=== PATIENT | female | born 1970 | race American Indian/Alaskan Native ===

== ENCOUNTER 2019-11-23 17:42 | Emergency (ER) | payer SELFPAY ==
--- NOTE | 2019-11-23 19:24 | Event Note ---
ED Screening Note Date of service: 11/23/19 Time: 19:38 ED Screening Note: 49 y/o female comes in for tingling and "sticky pin" discomfort to the right side in the last 2 days. Denies any trauma or injuries. Patient has been out of her blood pressure for 7 months. Patient admits to not wanting to alive at times. Denies any SI. Patient is tearful in triage. BS 200 This initial assessment/diagnostic orders/clinical plan/treatment(s) is/are subject to change based on patients health status, clinical progression and re- assessment by fellow clinical providers in the ED. Further treatment and workup at subsequent clinical providers discretion. Patient/guardian urged not to elope from the ED as their condition may be serious if not clinically assessed and managed. Initial orders include:
--- NOTE | 2019-11-23 19:31 | Emergency Department Report ---
Chief Complaint: Neuro Symptoms/Deficit Stated Complaint: HIP & LEG HAS TINGLING, STICK PIN FEEL Time Seen by Provider: 11/23/19 19:23 - HPI History of Present Illness: 49 y/o female comes in for tingling and "sticky pin" discomfort to the right side in the last 2 days. Denies any trauma or injuries. - Exam Vital Signs: Vital Signs 11/23/19 17:54 Temperature 98.8 F Pulse Rate 111 H Respiratory 16 Rate Blood Pressure 193/121 O2 Sat by Pulse 94 Oximetry MSE screening note: Focused history and physical exam performed. Due to findings the following was ordered: ED Disposition for MSE Condition: Stable
[2019-11-23 19:32] VITALS: BP 196/110
[2019-11-23 19:52] LABS: Basophils # (Auto) 0.1 K/mm3 (0.0-0.1); Basophils % (Auto) 1.2 % (0.0-1.8); Eosinophils # (Auto) 0.1 K/mm3 (0.0-0.4); Eosinophils % (Auto) 2.1 % (0.0-4.3); Hematocrit 43.7 % (30.3-42.9); Hemoglobin 14.9 gm/dl (10.1-14.3); Lymphocytes # (Auto) 1.8 K/mm3 (1.2-5.4); Lymphocytes % (Auto) 31.9 % (13.4-35.0); Mean Corpuscular HGB Conc 34 % (30-34); Mean Corpuscular Volume 86 fl (79-97); Monocytes # (Auto) 0.4 K/mm3 (0.0-0.8); Monocytes % (Auto) 6.6 % (0.0-7.3); Platelet Count 220 K/mm3 (140-440); Red Blood Count 5.06 M/mm3 (3.65-5.03); Red Cell Distribution Width 13.9 % (13.2-15.2)
[2019-11-23 20:15] LABS: Alanine Aminotransferase 19 units/L (7-56); Albumin 3.9 g/dL (3.9-5); BUN/Creatinine Ratio 21; Blood Urea Nitrogen 15 mg/dL (7-17); Calcium 9.7 mg/dL (8.4-10.2); Hemolysis Index 7
[2019-11-23] MEDS ORDERED: IBUPROFEN 600 MG TAB PO ONE (20:44)
[2019-11-23] MEDS ORDERED: GABAPENTIN 300 MG CAP PO ONE (20:44)
--- NOTE | 2019-11-23 21:30 | Emergency Department Report ---
ED General Adult HPI - General Chief complaint: Neuro Symptoms/Deficit Stated complaint: HIP & LEG HAS TINGLING, STICK PIN FEEL Time Seen by Provider: 11/23/19 19:23 Source: patient Mode of arrival: Ambulatory Limitations: No Limitations - History of Present Illness Initial comments: Patient is a 49-year-old -[place] female with a history of hypertension, mal-teaeelt-ozvcaluat diabetes, anxiety and depression who presents to the ED with acute onset persistent right lateral neck pain with tingling and numbness sensation on the right hand and low back pain that radiates to the right leg with tingling and numbness sensation. Patient states that the symptoms have been persistent and that she is unable to sleep. Patient denies dizziness, na usea, vomiting, chest pain, shortness of breath, fever, chills, cough, fall, traumatic injury, heavy lifting, headache, abdominal pain or change in vision or syncope. Patient also states that she would like her medications refilled since she ran out of hypertension medications. MD Complaint: Right hand and leg tingling sensations; neck pain, low back pain -: Sudden, days(s) (2) Location: neck, back (lower), upper extremity (right hand), lower extremity (right leg) Radiation: non-radiation Severity scale (0 -10): 9 Quality: aching, sharp Consistency: constant Improves with: none Worsens with: none Associated Symptoms: denies other symptoms. denies: confusion, chest pain, cough, diaphoresis, fever/chills, headaches, loss of appetite, malaise, nausea/vomiting, rash, seizure, shortness of breath, syncope, weakness Treatments Prior to Arrival: none - Related Data Previous Rx's Medication Instructions Recorded Last Taken Type Gabapentin 300 mg PO Q12H PRN #30 cap 11/23/19 Unknown Rx Ibuprofen [Motrin] 800 mg PO Q8HR PRN #24 tablet 11/23/19 Unknown Rx Sertraline [Zoloft] 50 mg PO QDAY #60 tablet 11/23/19 Unknown Rx amLODIPine 10 mg PO DAILY #30 tab 11/23/19 Unknown Rx lisinopriL [Zestril TAB] 20 mg PO QDAY #30 tablet 11/23/19 Unknown Rx metFORMIN [Glucophage] 500 mg PO Q12H #60 tablet 11/23/19 Unknown Rx predniSONE [Deltasone] 40 mg PO QDAY #10 tab 11/23/19 Unknown Rx Allergies Allergy/AdvReac Type Severity Reaction Status Date / Time codeine Allergy Unknown Verified 11/23/19 17:47 ED Review of Systems ROS: Stated complaint: HIP & LEG HAS TINGLING, STICK PIN FEEL Other details as noted in HPI Constitutional: denies: chills, fever Eyes: denies: eye pain, eye discharge, vision change ENT: denies: ear pain, throat pain Respiratory: denies: cough, shortness of breath, wheezing Cardiovascular: denies: chest pain, palpitations Endocrine: no symptoms reported Gastrointestinal: denies: abdominal pain, nausea, vomiting, diarrhea, constipation, hematemesis Genitourinary: denies: urgency, dysuria, discharge Musculoskeletal: back pain (Low back pain that radiates to the right leg), arthralgia (Right lateral neck pain that radiates to the right arm). denies: joint swelling Skin: denies: rash, lesions Neurological: headache. denies: weakness, paresthesias Psychiatric: denies: anxiety, depression Hematological/Lymphatic: denies: easy bleeding, easy bruising ED Past Medical Hx - Past Medical History Hx Hypertension: Yes Hx Diabetes: Yes Hx Asthma: Yes - Surgical History Additional Surgical History: D&C, Hysterectomy, breast reduction - Social History Smoking Status: Never Smoker Substance Use Type: Marijuana - Medications Home Medications: Home Medications Medication Instructions Recorded Confirmed Last Taken Type Gabapentin 300 mg PO Q12H PRN #30 cap 11/23/19 Unknown Rx Ibuprofen [Motrin] 800 mg PO Q8HR PRN #24 tablet 11/23/19 Unknown Rx Sertraline [Zoloft] 50 mg PO QDAY #60 tablet 11/23/19 Unknown Rx amLODIPine 10 mg PO DAILY #30 tab 11/23/19 Unknown Rx lisinopriL [Zestril TAB] 20 mg PO QDAY #30 tablet 11/23/19 Unknown Rx metFORMIN [Glucophage] 500 mg PO Q12H #60 tablet 11/23/19 Unknown Rx predniSONE [Deltasone] 40 mg PO QDAY #10 tab 11/23/19 Unknown Rx ED Physical Exam - General Limitations: No Limitations General appearance: alert, in no apparent distress - Head Head exam: Present: atraumatic, normocephalic, normal inspection - Eye Eye exam: Present: normal appearance, PERRL, EOMI Pupils: Present: normal accommodation - ENT ENT exam: Present: normal exam, normal orophraynx, mucous membranes moist, TM's normal bilaterally, normal external ear exam - Neck Neck exam: Present: normal inspection, tenderness (Right lateral sternocleidomastoid tenderness), full ROM - Respiratory Respiratory exam: Present: normal lung sounds bilaterally. Absent: respiratory distress, wheezes, rhonchi, stridor, chest wall tenderness, accessory muscle use, decreased breath sounds - Cardiovascular Cardiovascular Exam: Present: normal rhythm, tachycardia, normal heart sounds. Absent: systolic murmur, diastolic murmur, rubs, gallop - GI/Abdominal GI/Abdominal exam: Present: soft, normal bowel sounds. Absent: tenderness, guarding, hyperactive bowel sounds, hypoactive bowel sounds, organomegaly - Extremities Exam Extremities exam: Present: normal inspection, full ROM, normal capillary refill. Absent: tenderness - Back Exam Back exam: Present: normal inspection, full ROM, tenderness (Palpable lumbosacral paraspinal musculoskeletal tenderness), muscle spasm, paraspinal tenderness - Neurological Exam Neurological exam: Present: alert, oriented X3, CN II-XII intact, normal gait, reflexes normal - Psychiatric Psychiatric exam: Present: normal affect, normal mood - Skin Skin exam: Present: warm, dry, intact, normal color. Absent: rash ED Course Vital Signs 11/23/19 11/23/19 17:54 19:31 Temperature 98.8 F Pulse Rate 111 H 99 H Respiratory 16 17 Rate Blood Pressure 193/121 Blood Pressure 196/110 [Right] O2 Sat by Pulse 94 Oximetry ED Medical Decision Making - Lab Data Result diagrams: 11/23/19 19:41 11/23/19 19:41 - Medical Decision Making This is a 49-year-old female who presented to the ED with right lateral neck pain that radiates to the right arm, low back pain that radiates to the right leg and mild headache. In the ED, patient is alert and oriented x3 and is not in any distress but anxious and tachycardic in triage. Lab test results were reviewed and are all nonactionable. Patient was treated for pain in the ED and discharged home on pain medications as well as a refill of her hypertension medication. Patient was advised to follow-up with his [facility] clinic in 5 to 7 days for reevaluation and to establish care. Patient was however advised return to the ED immediately if symptoms get worse. - Differential Diagnosis cervical radiculopathy; Lumbar radiculopathy; Muscle strain; muscle spasm Critical care attestation.: If time is entered above; I have spent that time in minutes in the direct care of this critically ill patient, excluding procedure time. ED Disposition Clinical Impression: Cervical radiculopathy, Lumbar radiculopathy, Uncontrolled stage 2 hypertension Disposition: TO HOME OR SELFCARE Is pt being admited?: No Does the pt Need Aspirin: No Condition: Stable Instructions: Hypertension (ED), Cervical Radiculopathy (ED), Lumbar Radiculopathy (ED) Additional Instructions: Take medication with food, drink plenty of fluids and follow-up with your primary care physician in 5 to 7 days for reevaluation. Return to the ED immediately if symptoms get worse. Prescriptions: amLODIPine 10 mg PO DAILY #30 tab predniSONE [Deltasone] 40 mg PO QDAY #10 tab Gabapentin 300 mg PO Q12H PRN #30 cap PRN Reason: Pain , Severe (7-10) metFORMIN [Glucophage] 500 mg PO Q12H #60 tablet Ibuprofen [Motrin] 800 mg PO Q8HR PRN #24 tablet PRN Reason: Pain , Severe (7-10) lisinopriL [Zestril TAB] 20 mg PO QDAY #30 tablet Sertraline [Zoloft] 50 mg PO QDAY #60 tablet Referrals: [facility] [Outside] - 7-10 days Time of Disposition: 21:33 Print Language: TURKMEN
== END 2019-11-23 22:04 | disposition home or self-care (01) ==
LOC: ED 17:42
DX: M54.12 Radiculopathy, cervical region (principal); M54.16 Radiculopathy, lumbar region; I10 Essential (primary) hypertension; E11.9 Type 2 diabetes mellitus without complications; J45.909 Unspecified asthma, uncomplicated; F12.10 Cannabis abuse, uncomplicated; Z79.899 Other long term (current) drug therapy; Z88.5 Allergy status to narcotic agent
CPT/HCPCS: 36415; 80053; 82962; 85025

== ENCOUNTER 2019-12-11 18:14 | Emergency (ER) | payer SELFPAY ==
--- NOTE | 2019-12-11 18:44 | Event Note ---
ED Screening Note Date of service: 12/11/19 Time: 18:40 ED Screening Note: Pt complains of left foot pain and numbness after fire extinguisher fell on her foot at work today This initial assessment/diagnostic orders/clinical plan/treatment(s) is/are subject to change based on patients health status, clinical progression and re- assessment by fellow clinical providers in the ED. Further treatment and workup at subsequent clinical providers discretion. Patient/guardian urged not to elope from the ED as their condition may be serious if not clinically assessed and managed. Initial orders include: XR
--- NOTE | 2019-12-11 19:21 | XRay Report ---
Left foot 3 views INDICATION: Left foot pain and swelling IMPRESSION: No fracture or subluxation of the left foot is identified. Moderate to severe degenerativ e changes identified involving the midfoot and distal forefoot. Signer Name: Sae Gray MD Signed: 12/11/2019 7:17 PM Workstation Name: [id number]
[2019-12-11] MEDS ORDERED: traMADol 50 MG TAB PO ONE (20:38)
--- NOTE | 2019-12-11 20:42 | Emergency Department Report ---
ED Lower Extremity HPI - General Chief Complaint: Extremity Injury, Lower Stated Complaint: LT FOOT INJURY Time Seen by Provider: 12/11/19 18:39 Source: patient Mode of arrival: Ambulatory Limitations: No Limitations - History of Present Illness Initial Comments: Patient is a 49-year-old female presents the emergency room with complaints of a left foot injury that occurred earlier today. She states that when she was at work a fire extinguisher fell onto her foot. She states initially she had tingling in the foot but when she removed her shoe she began to feel a throbbing pain. She denies any numbness or weakness currently. She states that she has been ambulatory but it is uncomfortable. She has a past medical history of DM, HTN, asthma. She has an allergy to codeine. She states that she had a hysterectomy. She states that she takes amlodipine and lisinopril for her blood pressure and reports that she took them today. - Related Data Previous Rx's Medication Instructions Recorded Last Taken Type Gabapentin 300 mg PO Q12H PRN #30 cap 11/23/19 Unknown Rx Ibuprofen [Motrin] 800 mg PO Q8HR PRN #24 tablet 11/23/19 Unknown Rx Sertraline [Zoloft] 50 mg PO QDAY #60 tablet 11/23/19 Unknown Rx lisinopriL [Zestril TAB] 20 mg PO QDAY #30 tablet 11/23/19 Unknown Rx metFORMIN [Glucophage] 500 mg PO Q12H #60 tablet 11/23/19 Unknown Rx predniSONE [Deltasone] 40 mg PO QDAY #10 tab 11/23/19 Unknown Rx Lisinopril/Hydrochlorothiazide 1 tab PO QDAY #30 tab 12/11/19 Unknown Rx [Zestoretic 20-25 mg] Naproxen [EC-Naproxen] 375 mg PO BID PRN #14 tablet. 12/11/19 Unknown Rx amLODIPine 10 mg PO DAILY #30 tab 12/11/19 Unknown Rx Allergies Allergy/AdvReac Type Severity Reaction Status Date / Time codeine Allergy Unknown Verified 11/23/19 17:47 ED Review of Systems ROS: Stated complaint: LT FOOT INJURY Other details as noted in HPI Comment: All other systems reviewed and negative ED Past Medical Hx - Past Medical History Previous Medical History?: Yes Hx Hypertension: Yes Hx Diabetes: Yes Hx Asthma: Yes - Surgical History Past Surgical History?: Yes Additional Surgical History: D&C, Hysterectomy, breast reduction - Social History Smoking Status: Former Smoker Substance Use Type: None - Medications Home Medications: Home Medications Medication Instructions Recorded Confirmed Last Taken Type Gabapentin 300 mg PO Q12H PRN #30 cap 11/23/19 Unknown Rx Ibuprofen [Motrin] 800 mg PO Q8HR PRN #24 tablet 11/23/19 Unknown Rx Sertraline [Zoloft] 50 mg PO QDAY #60 tablet 11/23/19 Unknown Rx lisinopriL [Zestril TAB] 20 mg PO QDAY #30 tablet 11/23/19 Unknown Rx metFORMIN [Glucophage] 500 mg PO Q12H #60 tablet 11/23/19 Unknown Rx predniSONE [Deltasone] 40 mg PO QDAY #10 tab 11/23/19 Unknown Rx Lisinopril/Hydrochlorothiazide 1 tab PO QDAY #30 tab 12/11/19 Unknown Rx [Zestoretic 20-25 mg] Naproxen [EC-Naproxen] 375 mg PO BID PRN #14 tablet. 12/11/19 Unknown Rx amLODIPine 10 mg PO DAILY #30 tab 12/11/19 Unknown Rx ED Physical Exam - General Limitations: No Limitations General appearance: alert, in no apparent distress - Head Head exam: Present: atraumatic, normocephalic - Eye Eye exam: Present: normal appearance - ENT ENT exam: Present: mucous membranes moist - Extremities Exam Extremities exam: Present: other (ttp to the left 2nd and 3rd toes, there is ecchymosis present to the toes, no ttp of the left foot or ankle, FROM of the left foot and ankle, she has decreased ROM of the 2nd and 3rd toe secondary to pain, no obvious deformity, neurovascularly intact) - Neurological Exam Neurological exam: Present: alert, oriented X3 - Psychiatric Psychiatric exam: Present: normal affect, normal mood - Skin Skin exam: Present: warm, dry, intact ED Course Vital Signs 12/11/19 12/11/19 12/11/19 18:25 18:40 21:22 Temperature 98.8 F 98.8 F 98.2 F Pulse Rate 98 H 91 H 88 Respiratory 18 16 Rate Blood Pressure 217/121 217/121 203/111 O2 Sat by Pulse 98 99 98 Oximetry 12/11/19 12/11/19 23:04 23:46 Temperature 98.2 F Pulse Rate 107 H 107 H Respiratory 16 16 Rate Blood Pressure 200/100 O2 Sat by Pulse 98 98 Oximetry ED Lower Extremity MDM - Radiology Data Radiology results: report reviewed Left foot 3 views INDICATION: Left foot pain and swelling IMPRESSION: No fracture or subluxation of the left foot is identified. Moderate to severe degenerative changes identified involving the midfoot and distal forefoot. Signer Name: Sae Gray MD Signed: 12/11/2019 7:17 PM Workstation Name: [id number] Transcribed By: ARINA Dictated By: Sae Gray MD Electronically Authenticated By: Sae Gray MD Signed Date/Time: 12/11/191916 DD/ 15 TD/TT: - Medical Decision Making Patient is a 49-year-old female presents the emergency room with complaints of a left foot injury that occurred earlier today. She states that when she was at work a fire extinguisher fell onto her foot. She states initially she had tingling in the foot but when she removed her shoe she began to feel a throbbing pain. She denies any numbness or weakness currently. She states that she has been ambulatory but it is uncomfortable. She has a past medical history of DM, HTN, asthma. She has an allergy to codeine. She states that she had a hysterectomy. She states that she takes amlodipine and lisinopril for her blood pressure and reports that she took them today. on exam: ttp to the left 2nd and 3rd toes, there is ecchymosis present to the toes, no ttp of the left foot or ankle, FROM of the left foot and ankle, she has decreased ROM of the 2nd and 3rd toe secondary to pain, no obvious deformity, neurovascularly intact. XR left foot: No fracture or subluxation of the left foot is identified. Moderate to severe degenerative changes identified involving the midfoot and distal forefoot. Patient did not drive to the emergency department, her pain was treated. Patient's vitals significant for elevated blood pressure of 217/121 patient given hydralazine p.o. and her blood pressure is slightly improved. Patient is not having any symptoms related to her blood pressure, she is not having any chest pain, shortness of breath, numbness, headache, vision changes. The up-to-date medical literature does not recommend emergently lowering asymptomatic elevated blood pressure. It appears patient's blood pressure has been elevated multiple times in the past. Patient reports that she takes amlodipine and lisinopril. Will change her lisinopril to a combination of lisinopril and hydrochlorothiazide. Patient given prescription for naproxen. adivsed pt to please stop taking the lisinopril. Begin taking lisinopril with hydrochlorothiazide. Please follow-up with a primary care doctor in the next 2 to 3 days. Your lab test need to be monitored by a primary care physician regularly. Please keep a blood pressure log and take your blood pressure 3 times a day. Eat a low-sodium diet. Incorporate daily exercise. Please take medication as prescribed as needed for pain. Follow-up with orthopedic doctor. May use ice for 15 minutes at a time, rest, elevation of the leg. Return to the emergency room for any new or worsening symptoms. - Differential Diagnosis strain, sprain, fx, dislocation, contusion Critical care attestation.: If time is entered above; I have spent that time in minutes in the direct care of this critically ill patient, excluding procedure time. ED Disposition Clinical Impression: Elevated blood pressure reading Injury of toe, left, superficial Qualifiers: Encounter type: initial encounter Qualified Code(s): S90.935A - Unspecified superficial injury of left lesser toe(s), initial encounter Disposition: DC- TO HOME OR SELFCARE Is pt being admited?: No Does the pt Need Aspirin: No Condition: Stable Instructions: Chronic Hypertension (ED), Arthralgia (ED) Additional Instructions: Please stop taking the lisinopril. Begin taking lisinopril with hydrochlorothiazide. Please follow-up with a primary care doctor in the next 2 to 3 days. Your lab test need to be monitored by a primary care physician regularly. Please keep a blood pressure log and take your blood pressure 3 times a day. Eat a low-sodium diet. Incorporate daily exercise. Please take medication as prescribed as needed for pain. Follow-up with orthopedic doctor. May use ice for 15 minutes at a time, rest, elevation of the leg. Return to the emergency room for any new or worsening symptoms. Prescriptions: amLODIPine 10 mg PO DAILY #30 tab Naproxen [EC-Naproxen] 375 mg PO BID PRN #14 tablet.dr SANDOVAL Reason: pain Lisinopril/Hydrochlorothiazide [Zestoretic 20-25 mg] 1 tab PO QDAY #30 tab Referrals: ES GAMINO MD [Staff Physician] - 2-3 Days [facility] [Outside] - 2-3 Days [facility]Note 3[facility] [Outside] - 2-3 Days Time of Disposition: 23:15 Print Language: ITALIAN
[2019-12-11] MEDS ORDERED: hydrALAZINE 100 MG TAB PO ONE (21:34)
[2019-12-11 23:10] VITALS: BP 200/100
== END 2019-12-11 23:46 | disposition home or self-care (01) ==
LOC: ED 18:14
DX: S99.922A Unspecified injury of left foot, initial encounter (principal); R03.0 Elevated blood-pressure reading, without diagnosis of hypertension; I10 Essential (primary) hypertension; E11.9 Type 2 diabetes mellitus without complications; J45.909 Unspecified asthma, uncomplicated; Z90.710 Acquired absence of both cervix and uterus; Z98.890 Other specified postprocedural states; Z87.891 Personal history of nicotine dependence; Z79.899 Other long term (current) drug therapy; Z88.6 Allergy status to analgesic agent; W20.8XXA Other cause of strike by thrown, projected or falling object, initial encounter; Y93.89 Activity, other specified; Y92.89 Other specified places as the place of occurrence of the external cause; Y99.8 Other external cause status